=== PATIENT | male | born 1985 | race Caucasian/White ===

== ENCOUNTER → 2020-01-21 | Outpatient (CLI) | payer OTHER ==
[~2020-01-21] MED LIST: ALBUTEROL0.09 MG/A2 INH; AMOXICILLIN125 MG PO; AMOXICILLIN500 M1; AMOXICILLIN500 MG PO; ANTIVERT/2525 MG PO; CIPRODEX 0.3%-7.5 ML OT; CLARITIN10 MG PO; CLEOCIN HCL150 MG PO; EAR DROPS; FLONASE ALLERG9.9 ML NAS; HYDROCODONE BIT1 T11 PO; KLOR-CON20 MEQ PO; MEDROL DOSEPAK4 MG PO; MOTRIN800 MG PO; NKHM; NKHM PO; PEN-VEE K500 MG PO; PENICILLIN250 MG PO; PREDNICOT20 MG PO; PREDNISONE10 MG PO; PREDNISONE5 MG; TRAMADOL HCL50 MG PO; TYLENOL500 MG PO; VICODIN 500 MG-1 TAB PO; VICODIN ES 7501 TAB PO; WYMOX500 MG PO; ZANTAC150 MG PO; ZITHROMAX Z PA250 MG PO; ZOFRAN4 MG PO
== END | disposition home or self-care (01) ==
LOC: COVID19 01:02
PROVIDERS: ATTEND Family Medicine
DX: Z20.828 Contact with and (suspected) exposure to other viral communicable diseases (principal)